=== PATIENT | male | born 1950 | race Caucasian/White ===

== ENCOUNTER → 2017-06-16 | Outpatient (CLI) | payer OTHER ==
[2017-06-16 11:31] LABS: BUN/CREATININE RATIO 17 (0-10)
[2017-06-16 11:40] LABS: HEMOGLOBIN 12.5 gm/dl (14.0-17.5); RED BLOOD COUNT 4.21 M/UL (4.20-5.50); WHITE BLOOD COUNT 3.6 K/UL (4.5-11.0)
== END ==
LOC: OPSV2 10:28 → EDSTATUS 10:30 → OPSV2 10:30
PROVIDERS: Orthopaedic Surgery
DX: Z01.810 Encounter for preprocedural cardiovascular examination (principal); Z01.812 Encounter for preprocedural laboratory examination; Z01.818 Encounter for other preprocedural examination; M17.11 Unilateral primary osteoarthritis, right knee; E11.9 Type 2 diabetes mellitus without complications; I10 Essential (primary) hypertension; Z88.0 Allergy status to penicillin
CPT/HCPCS: 36415; 71020; 80048; 81001; 83036; 85025; 87077; 87081; 87086; 87186; 93005

== ENCOUNTER 2021-11-24 10:33 | Emergency (ER) | payer OTHER ==
[~2021-11-24 10:33] MED LIST: COREG 25MG TAB25 MG PO; DITROPAN 5 MG TA5 MG PO; ECOTRIN81 MG PO; GLUCOPHAGE1000 MG PO; GLUCOTROL5 MG PO; KEFLEX CAP 500500 MG PO; MAGOX 400400 MG PO; NEURONTIN 300300 MG PO; NORCO 5-325 TA1 EACH PO; NORVASC 5 MG TAB5 MG PO; OMEPRAZOLE20 MG PO; VITAMIN D31000 UNI1 PO; VOLTAREN EC 2525 MG PO; ZESTRIL40 MG PO; ZOCOR40 MG PO; ZYLOPRIM 300 M300 MG PO
[2021-11-24 11:20] LABS: HEMOGLOBIN 11.5 gm/dl (14.0-17.5); RED BLOOD COUNT 4.1 M/UL (4.20-5.50); WHITE BLOOD COUNT 7.2 K/UL (4.5-11.0)
[2021-11-24] MEDS ORDERED: ATROVENT-HFA12.9 GM INH (13:52)
[2021-11-24] MEDS ORDERED: VIBRAMYCIN 100100 MG PO (13:52)
[2021-11-24] MEDS ORDERED: BENZONATATE200 MG PO (13:52)
== END 2021-11-24 14:03 | disposition home or self-care (01) ==
LOC: ER1 10:33
PROVIDERS: Physician Assistant Medical
DX: U07.1 COVID-19 (principal); E11.9 Type 2 diabetes mellitus without complications; I10 Essential (primary) hypertension; Z88.0 Allergy status to penicillin
CPT/HCPCS: 71045; 80053; 82550; 82553; 83874; 83880; 84484; 85025; 93005; 96374; 99285; J1100